=== PATIENT | female | born 1945 | race Caucasian/White ===

== ENCOUNTER 2016-11-16 00:57 | Inpatient (IN) | payer OTHER ==
[~2016-11-16] VITALS: Ht 170.2 cm; Wt 68.0 kg
--- NOTE | 2016-11-16 14:25 | Admission Core Measures ---
Admission Meds I reviewed the following Meds: Current Medications Sig/Kodak Start time Last Medication Dose Stop Time Status Admin Acetaminophen 975 MG ONCE 11/16 0000 NR (Tylenol) 11/16 2358 Cefazolin Sodium 2,000 MG ONCE 11/16 0000 NR (Kefzol-Ancef Inj) 11/16 2358 Oxycodone HCl 10 MG ONCE 11/16 0000 NR (Roxicodone) 11/16 2358 Acute Coronary Syndrome Inclusion Criteria ACS Diagnosis No Inpatient Core Measures LDL Reminder: If No, please order W/I first 24hr of stay Congestive Heart Failure Inclusion Criteria CHF Diagnosis No Cerebrovascular accident Inclusion Criteria CVA/TIA Diagnosis No Inpatient Core Measures Bedside Swallow Eval Reminder: If BSE failed, place ST order Antithrombotic Reminder: Order Antithrombotic Medication by end of day 2 Antithrombotic Reminder: Document Reason Antithrombotic Not ordered by end of day 2 AFIB/Flutter Reminder: If Present, add to problem list AFIB/Flutter Reminder: Order Anticoag Medication for pts with AFIB/Flutter Atherosclerosis Reminder: If Present, add to problem list LDL Reminder: If No, please order W/I first 24hr of stay PT Order Reminder: If No, please order Venous thromboembolism Inpatient Core Measures VTE Risk Factors: Age > 40, Surgery No [facility] VTE prophylaxis d/t No contraindications No VTE Pharm Prophylaxis d/t No contraindications Inclusion Criteria - Per Current guidelines, there needs to be overlap - treatment for the first 5 days of Warfarin therapy. - Parenteral Anticoagulation (IV or SC) needs to be - given along with Warfarin therapy. VTE Diagnosis No VTE Type NONE VTE Confirmed by (Test) NONE Problem List As ranked by this Provider includes Assessment & Plan 1. Unilateral primary osteoarthritis, right hip
[2016-11-16] MEDS ORDERED: DILAUDID2 M1 PO (14:27)
[2016-11-16] MEDS ORDERED: COLACE100 M1 PO (14:27)
[2016-11-16] MEDS ORDERED: ASPIRIN EC325 M2 PO (14:27)
[2016-11-16] MEDS ORDERED: MIRALAX17 G1 PO (14:27)
[2016-11-16] MEDS ORDERED: MS CONTIN15 M2 PO (14:27)
--- NOTE | 2016-11-16 14:30 | Patient Discharge Instructions ---
Discharge Instructions General Discharge Information You were seen/treated for: Right hip pain related to unilateral primary osteoarthritis You had these procedures: Right total hip replacement Watch for these problems: Increasing pain despite the use of pain medication Increasing redness, warmth or swelling Drainage of any type from incision Inability to bear weight on operative leg Persistent nausea and vomiting Fever greater than 101.5 degrees Do not soak the wound: Yes No bath, but you may shower: Yes Other wound care: Please keep wound clean and dry. No ointments or lotions of any type on or near incision at any time. No exceptions. Your dressing will be changed by your nurse on the second day after your surgery. Daily dry dressing changes are recommended each day thereafter. Do not soak your wound in a bath at any time until otherwise indicated by your surgeon. You may shower, please dry wound immediately after shower with a clean towel. Special Instructions: Aspirin: You are taking this medication to help prevent blood clot formation. Please take with food to protect your stomach lining. Please take as directed. Constipation: Pain medication can cause constipation. Dr. Barnes has recommended that you take Colace and miralax each day. You may discontinue this medication if you develop loose stool or diarrhea. If you wish to continue this medication, it is available over the counter. If you are unable to move your bowels after several days, if you are unable to pass gas and are developing bloating, nausea, or vomiting as a result, please contact your doctor. Diet Continue normal diet: Yes Recommended Diet: Regular Activity Full Activity/No Limits: No Activity Self Limited: Yes Pounds, do NOT lift more than: 10 Activity Limited to: Weight bear as tolerated Acute Coronary Syndrome Inclusion Criteria At DC or during hospital stay patient has or had the following: ACS DIAGNOSIS No Discharge Core Measures Meds if any: Prescribed or Continued at Discharge Meds if any: NOT Prescribed or Continued at Discharge Congestive Heart Failure Inclusion Criteria At DC or during hospital stay patient has or had the following: CHF DIAGNOSIS No Discharge Core Measures Meds if any: Prescribed or Continued at Discharge Meds if any: NOT Prescribed or Continued at Discharge Cerebrovascular accident Inclusion Criteria At DC or during hospital stay patient has or had the following: CVA/TIA Diagnosis No Discharge Core Measures Meds if any: Prescribed or Continued at Discharge Meds if any: NOT Prescribed or Continued at Discharge Venous thromboembolism Inclusion Criteria VTE Diagnosis No VTE Type NONE VTE Confirmed by (Test) NONE Discharge Core Measures - Per Current guidelines, there needs to be overlap - treatment for the first 5 days of Warfarin therapy. - If discharged on Warfarin prior to 5 days of - overlap therapy, the patient will need to be - assessed for post discharge needs including - *Post discharge parental anticoagulation - *Warfarin and/or parental anticoagulation education - *Follow up date to check INR post discharge At least 5 days overlap therapy as Inpatient No Meds if any: Prescribed or Continued at Discharge Note: Overlap Therapy is Warfarin and Anticoagulant Meds if any: NOT Prescribed or Continued at Discharge
--- NOTE | 2016-11-16 14:33 | Surgical Discharge Summary ---
Visit Information Visit Dates Admission Date: 11/16/16 Discharge Date: 11/18/16 History of Present Illness Chief Complaint: Right hip pain related to unilateral primary osteoarthritis Surgical History Pertinent Surgical History: non-contributory Review of Systems: See H&P Hospital Course Course Attending Physician: BRADY SALAZAR MD Primary Care Physician: UNKNOWN Hospital Course: Patient was admitted to the hospital for an elective total joint replacement. The procedure was tolerated well and patient was transferred to a general surgical floor. Diet was advanced and tolerated, and the patient voided spontaneously. The patient was evaluated and treated by physical therapy. At the time of hospital discharge, the vital signs were stable, neurovascular status was intact, and pain was controlled with the use of oral pain medications. Allergies: Coded Allergies: No Known Allergies (11/07/16) Disposition Summary Disposition Principal Diagnosis: Right hip unilateral primary osteoarthritis Additional Diagnosis: None Discharge Disposition: home health services Discharge Instructions General Discharge Information Code Status: Full Code Patient's Diet: Regular, advance as tolerated Patient's Activity: WBAT Follow-Up Instructions/Appts: Follow up with Dr. Salazar in 6 weeks from date of surgery. Please call his office to arrange and/or confirm this appointment. Medications at Discharge Discharge Medications: Start taking the following new medications: Aspirin (Ecotrin*) 325 MG TABLET. 1 Tablet ORAL TWICE DAILY Qty = 60 No Refills Docusate Sodium (Colace) 100 MG CAPSULE 1 Capsule ORAL TWICE DAILY Qty = 14 No Refills Instructions: DISCONTINUE USE IF YOU DEVELOP LOOSE STOOL OR DIARRHEA Hydromorphone HCl (Dilaudid) 2 MG TABLET 1-2 Tablet ORAL EVERY 4-6 HOURS NEEDED as needed for PAIN Qty = 36 No Refills Polyethylene Glycol 3350 (Miralax) 17 GRAM POWD.PACK 1 Packet ORAL DAILY Qty = 7 No Refills Instructions: dissolve in water, DISCONTINUE USE IF YOU DEVELOP LOOSE STOOL OR DIARRHEA Morphine Sulfate (Ms Contin) 15 MG TABLET.ER 1 Tablet ORAL TWICE DAILY Qty = 2 No Refills
--- NOTE | 2016-11-16 16:39 | RADIOLOGY REPORT ---
EXAMINATION: XR HIP, RIGHT CLINICAL INFORMATION: Status post right hip replacement COMPARISON: None TECHNIQUE: Two views of the right hip. FINDINGS: Prosthetic components of the right total hip arthroplasty are appropriately aligned. No periprosthetic fracture. Gas from recent surgery is present in the surrounding soft tissues. IMPRESSION: Normal postoperative appearance of the right total hip prosthesis.
--- NOTE | 2016-11-16 17:28 | Operative Report ---
Operative/Inv Procedure Report Surgery Date: 11/16/16 Name of Procedure: Right total hip replacement Pre-Operative Diagnosis: Primary right hip DJD Post-Operative Diagnosis: Same Estimated Blood Loss: 250 Surgeon/Culinary Specialist: MARIE DUPREE,BRADY George Anesthesia: block Operative/Procedure Note Note: Description of Procedure: The patient was taken to the operating room and positively identified. After induction of spinal anesthesia and administration of appropriate pre-operative antibiotics, the patient was positioned supine on the operating room table and all bony prominences were well padded. After performing a surgical timeout, the right lower extremity was prepped and draped in the usual sterile fashion. A direct anterior approach was made to the right hip. The incision was carried sharply through superficial soft tissues to the level of the fascia. Meticulous hemostasis was maintained with Bovie electocautery. The fascia over the tensor fascia dina muscle was opened sharply and the interval between the TFL and the sartorius was entered bluntly taking care to stay lateral to the lateral femoral cutaneous nerve. Retractors were placed around the femoral neck and the pericapsular fat was identified. The ascending branches of the lateral femoral circumflex vessels were identified and carefully coagulated. The pericapsular fat and anterior capsule were then resected. A napkin ring osteotomy was performed and the femoral head was removed without difficulty. Attention was then turned to the acetabulum. After appropriate placement of retractors, the acetabulum was exposed. Soft tissue was cleaned from the acetabular margin and notch. Overhanging osteophytes were removed and the teardrop was exposed. The acetabulum was then sequentially reamed to accept a 52 mm Priscila Tritanium hemispherical solid back shell. This was impacted into place in the appropriate position and fitted with a 32 mm Trident X3 zero degree polyethylene insert. Attention was then turned to the femur. After performing the appropriate ligament releases, the proximal femur was exposed. It was then sequentially broached to accept a size 3 Priscila Accolade 2 stem. This was trialed for leg length and stability. The trial component was removed and the final component was impacted into place. The trunnion was carefully cleaned and fit with a 32 mm, 0 Biolox delta ceramic femoral head. The hip was reduced and put through a full range of motion and found to be stable. The articular space was then irrigated with sterile saline. The periarticular soft tissues were infilitrated with Marcaine. The fascial layer was closed with interrupted #1 vicryl suture and the skin was re-approximated with interrupted 2 -0 vicryl. The skin was closed with a running 3-0 V-Lock suture. Steri-strips and a sterile dressing were applied. The patient was awakened and taken to the recovery room in satisfactory condition.
--- NOTE | 2016-11-16 17:33 | PN- Orthopedic ---
Subjective Subjective: POSTOP CHECK Sleepy. pain controlled. no n/v/cp/sob. dtv postop. no oob yet. Objective Vital Signs and I&Os BP: 134/65 HR: 79 RR:16 sat: 95%2L Physical Exam: GEN- NAD CARD- s1s2 RRR PULM- CTAB EXT: R hip dsg CDI, calves soft nt, +dorsi/planar flexion, +pedal pulses, gross sensate intact Assessment/Plan Assessment/Plan A: POD0 sp L JOYA, stable P: prn pain meds OOB, PT, WBAT asa for dvt ppx reg diet as tolerated dc planning sohail dw attending Core Measures/Miscellaneous Venous Thromboembolism VTE Risk Factors: Surgery VTE Contraindications: No Contraindications VTE Diagnosis: No VTE Type: NONE VTE Confirmed by (Test): NONE Beta Jose Is Beta Jose a Home Med? No Antibiotics Is Patient on Antibiotics? Yes If Yes: prophylaxis
[2016-11-16 18:57] VITALS: BP 136/70
[2016-11-16 21:00] VITALS: BP 130/60
[2016-11-16 23:08] VITALS: BP 102/60
[2016-11-17 01:00] VITALS: BP 126/60
[2016-11-17 04:22] VITALS: BP 130/60
--- NOTE | 2016-11-17 08:11 | PN- Orthopedic ---
Subjective Subjective: Patient with complaints of pain 5 out of 10. No acute events overnight. She has yet to be out of bed. Objective Vital Signs and I&Os Vital Signs Date Time Temp Pulse Resp B/P B/P Pulse O2 O2 Flow FiO2 Mean Ox Delivery Rate 11/17 0422 97.8 70 20 130/60 94 Room Air 11/17 0100 97.8 79 20 126/60 95 Room Air 11/16 2308 98.1 70 20 102/60 94 Room Air 11/16 2100 97.9 76 20 130/60 96 Room Air 11/16 1857 97.7 84 16 136/70 98 Room Air Intake & Output 11/17 1600 11/17 0800 11/17 0000 11/16 1600 11/16 0800 11/16 0000 Intake Total Output Total Balance Patient 150 lb Weight Physical Exam: Well-developed well-nourished no apparent distress. HEENT: Atraumatic, extraocular motion intact Neck: Supple, no lymphadenopathy Respiratory: No respiratory distress Extremities: No edema RIGHT lower extremity hip dressing in place, Dressing clean dry and intact Incision without erythema Mild thigh edema No signs of infection. No shortening or rotation Hip range of motion is limited and without unexpected pain Neurovascularly intact distally Bilateral calves are supple, nontender. Neuro: Alert and oriented x3 Psych: Mood affect normal, normal memory normal judgment. Skin: Warm and dry, no rash on exposed skin Results Last 48 Hours of Labs: Laboratory Tests 11/17 0738 Chemistry Sodium Pending Potassium Pending Chloride Pending Carbon Dioxide Pending Anion Gap Pending BUN Pending Creatinine Pending BUN/Creatinine Ratio Pending Hematology CBC w Diff Pending WBC Pending RBC Pending Hgb Pending Hct Pending MCV Pending MCH Pending RDW Pending Plt Count Pending MPV Pending PUBS MCHC Pending Assessment/Plan Assessment/Plan Postoperative day #1 status post right total hip arthroplasty anterior approach. Progressing well, follow labs this morning. Pain medication as needed. Aspirin for DVT prophylaxis. Regular diet. DC IV fluids. Perioperative antibiotics Out of bed with physical therapy today, hopefully discharge later today if labs okay and clear as physical therapy. Discussed with patient who understands and agrees with plan. Dressing change postop day 2, will need home services Core Measures/Miscellaneous Venous Thromboembolism VTE Risk Factors: Surgery VTE Contraindications: No Contraindications VTE Diagnosis: No VTE Type: NONE VTE Confirmed by (Test): NONE Beta Jose Is Beta Jose a Home Med? No Antibiotics Is Patient on Antibiotics? Yes If Yes: prophylaxis
[2016-11-17 08:26] LABS: ABSOLUTE BASOPHIL COUNT 0 /CUMM (0.0-0.2); ABSOLUTE EOSINOPHIL COUNT 0 /CUMM (0.0-0.7); ABSOLUTE GRANULOCYTE CT 9.9 /CUMM (1.4-6.5); ABSOLUTE LYMPH COUNT 1.1 /CUMM (1.2-3.4); ABSOLUTE MONOCYTE COUNT 0.6 /CUMM (0.10-0.60); BASOPHIL % 0 % (0.0-2.0); EOSINOPHIL % 0 % (0-5); HEMATOCRIT 29.8 % (37-47); MEAN CORPUSCULAR HGB 31.7 PG (27.0-31.0); MEAN CORPUSCULAR HGB CONC 34.8 G/DL (33.0-37.0); MEAN CORPUSCULAR VOLUME 90.9 FL (81.0-99.0); MEAN PLATELET VOLUME 8.1 FL (7.4-10.4); PLATELET COUNT 204 /CUMM (130-400); RBC DISTRIBUTION WIDTH 13.2 % (11.5-14.5); RED BLOOD CELL CT 3.28 /CUMM (4.20-5.40); WHITE BLOOD CELL COUNT 11.6 /CUMM (4.8-10.8)
[2016-11-17 08:58] LABS: GRANULOCYTE % 85.2 % (42.2-75.2)
[2016-11-17 10:00] VITALS: BP 120/70
[2016-11-17 13:56] VITALS: BP 125/70
--- NOTE | 2016-11-17 17:12 | NUR ---
LATE ENTRY: NOTIFIED BY PHYSICAL THERAPY THAT PT HAD JUST DONE STAIRS AND BEGAN TO FEEL LIGHTHEADED AND NAUSEOUS. SITTING IN LOUNGE, VITALS BP: 100/52, PULSE 73, O2 96% RA. STANDING BP 90/50. PT APPEARED DIAPHORETIC AND SAID SHE FELT MILD NAUSEA. RETURNED TO ROOM VIA CHAIR. GIVEN ZOFRAN FOR NAUSEA, SEE EMAR. PT REPORTS FEELING IMPROVED SINCE DRIKING GLASS OF WATER AND SINCE ZOFRAN ADMINISTRATION. SAFETY MAINTAINED, NEEDS IN REACH.
--- NOTE | 2016-11-17 19:31 | NUR ---
NURSING NOTE: PATIENT REPORTS TO THIS RN THAT HER FACE LOOKS RED WHEN AMBULATING TO THE BATHROOM. PATIENT DENIES ANY PAIN OR DISCOMFORT. VITALS CHECKED AND WITHIN DEFINED PARAMETERS, AFEBRILE, SKIN IS WARM AND DRY. PATIENT DENIES HISTORY OF ALLERGIES, NO DIFFICULTY BREATHING, LUNGS CLEAR, NO HIVES NOTED TO CHEST. PATIENT STATES "I FEEL FINE, JUST A LITTLE WARM". SURGICAL PA PAGED AT 416 FOR NOTIFICATION.
[2016-11-17 22:29] VITALS: BP 122/70
[2016-11-18 06:58] VITALS: BP 110/70
--- NOTE | 2016-11-18 07:49 | PN- Orthopedic ---
Subjective Subjective: feels ok, sleepy. ready to go home today. cleared by PT. no cp/sob/n/v/ lightheadedness Objective Vital Signs and I&Os Vital Signs Date Time Temp Pulse Resp B/P B/P Pulse O2 O2 Flow FiO2 Mean Ox Delivery Rate 11/18 0658 97.9 77 20 110/70 94 Room Air 11/17 2229 99.6 71 20 122/70 96 Room Air 11/17 1931 98.5 11/17 1600 Room Air 11/17 1447 Room Air 11/17 1356 98.7 88 20 125/70 98 Room Air 11/17 1000 98.7 70 20 120/70 96 Intake & Output 11/18 1600 11/18 0800 11/18 0000 11/17 1600 11/17 0800 11/17 0000 Intake Total 340 675 720 Output Total 225 700 300 Balance 115 -25 420 Intake, IV 20 75 600 Intake, Oral 320 600 120 Number 0 Bowel Movements Output, Urine 225 700 300 Patient 150 lb Weight Physical Exam: GEN: NAD CARD: S1S2 RRR PULM: no audible wheeze ABD: soft, nt EXT: r hip dressing changed- dry serosang drainaing on dressing, ttp, slight edema & eccymoses at incision, gross sensation intact, +dorsi/plantar flexion, palp pedal pulses, calves soft nt, compression stockings on bl Assessment/Plan Assessment/Plan A: 71F POD2 sp R JOYA, appropriate postop pain, stable P: - dvt ppx- asa, stockings, oob, ambulate - reg diet - prn pain meds -pt, wbat - dc planning - will dw attending Core Measures/Miscellaneous Venous Thromboembolism VTE Risk Factors: Surgery VTE Contraindications: No Contraindications VTE Diagnosis: No VTE Type: NONE VTE Confirmed by (Test): NONE Beta Jose Is Beta Jose a Home Med? No Antibiotics Is Patient on Antibiotics? Yes If Yes: prophylaxis
--- NOTE | 2016-11-18 10:20 | NUR ---
Physical Therapy: Attempted to see pt for treatment this morning. Pt requested to be first on PT's list to see this day. Pt refusing participation at this time. Reports she would like to sleep before she is discharged - as she is very tired despite a good night's sleep last night. Pt to be leaving and cleared for a home d/c. WIll follow up later as appropriate. Thank you.
== END 2016-11-18 11:54 | disposition home health service (06) | DRG 470 ==
LOC: SDA 00:57 → ENTRNSPT 15:40 → CMPTRNSPT 16:08 → ENRESERV 17:00 → ENTRNSPT 18:30 → 2NA 18:53 → CMPTRNSPT 18:59 → ENPENDDIS 11-18 08:20 → 2NA 11-18 11:54
PROVIDERS: Nurse Practitioner; ADMIT Orthopaedic Surgery
PROC: 0SR904A Replacement of Right Hip Joint with Ceramic on Polyethylene Synthetic Substitute, Uncemented, Open Approach (ICD-10-PCS; principal; 2016-11-16)
DX: M16.11 Unilateral primary osteoarthritis, right hip (principal); M25.751 Osteophyte, right hip
CPT/HCPCS: 2NAP; 36415; 73502-RT; 82436; 97110-GO; 97116-GO; 97161-GP; J0131; J0690; J0735; J1100; J2405; J2550; J7042